=== PATIENT | female | born 1970 | race Caucasian/White ===

== ENCOUNTER 2017-09-29 18:14 | Emergency (ER) | payer BC ==
--- NOTE | 2017-09-29 18:35 | UC ---
Respiratory Complaint HPI - HPI Summary HPI Summary: 47 year old female present with complains of severe CVA tenderness after being treated for a UTI as an outpatient. - History of Current Complaint Stated Complaint: SOB, BACK PAIN Time Seen by Provider: 09/29/17 18:35 Hx Obtained From: Patient Onset/Duration: Gradual Onset Severity Initially: Moderate Severity Currently: Moderate Pain Scale Used: 0-10 Numeric - 8 - Allergies/Home Medications Allergies/Adverse Reactions: Allergies Allergy/AdvReac Type Severity Reaction Status Date / Time Flu Virus Vaccine Allergy Headache Verified 09/29/17 20:27 Trimethobenzamide Allergy Vomiting Verified 09/29/17 20:27 [From [facility]] Home Medications: Home Medications Albuterol HFA INHALER* [Ventolin HFA Inhaler*] 2 puff INH Q6H PRN 09/29/17 [ History Confirmed 09/29/17] Budesonide/Formote 160/4.5(NF) [Symbicort 160/4.5 (NF)] 2 puff INH BID 09/29/17 [History Confirmed 09/29/17] PMH/Surg Hx/FS Hx/Imm Hx Previously Healthy: Yes - Surgical History Surgical History: None - Family History Known Family History: Positive: None - Social History Alcohol Use: None Review of Systems Constitutional: Fever, Chills Skin: Negative Eyes: Negative ENT: Negative Respiratory: Negative Cardiovascular: Negative Gastrointestinal: Abdominal Pain, Nausea Genitourinary: Negative Motor: Negative Neurovascular: Negative Musculoskeletal: Negative Neurological: Negative Psychological: Negative All Other Systems Reviewed And Are Negative: Yes Physical Exam Triage Information Reviewed: Yes Vital Signs Reviewed: Yes Eye Exam: Normal ENT Exam: Normal Dental Exam: Normal Neck exam: Normal Neck: Positive: 1 Respiratory Exam: Normal Cardiovascular Exam: Normal Abdominal Exam: Normal Abdomen Description: Positive: CVA Tenderness (R), CVA Tenderness (L) Musculoskeletal Exam: Normal Neurological Exam: Normal Psychological Exam: Normal Skin Exam: Normal Respiratory Course/Dx - Differential Dx/Diagnosis Provider Diagnoses: FEVER. CHILLS. CVS TENDERNESS. NAUSEA Discharge - Discharge Plan Condition: Stable Disposition: OTHER Discharge Disposition Comment: PATIENT SUGGESTED TO GO TO THE ER Patient Education Materials: Fever in Adults (ED), Acute Nausea and Vomiting ( ED) Referrals: Peyman Veloz MD [Primary Care Provider] - Additional Instructions: patient suggested to go to the er
[2017-09-29 19:14] VITALS: BP 144/80
== END 2017-09-29 19:22 ==
LOC: UCCORT 18:14
DX: R50.9 Fever, unspecified (principal); M54.9 Dorsalgia, unspecified; R11.0 Nausea
CPT/HCPCS: 93005; 99212; G0463

== ENCOUNTER 2017-09-29 20:15 | Emergency (ER) | payer BC ==
[2017-09-29 23:41] LABS: Hematocrit 43 % (35-47); Hemoglobin 14.3 g/dl (12.0-16.0); Mean Corpuscular HGB Conc 34 g/dl (31-36); Mean Corpuscular Hemoglobin 32 pg (27-31); Mean Corpuscular Volume 93 fL (80-97); Mean Platelet Volume 8 um3 (7.4-10.4); Red Blood Count 4.55 10^6/ul (4.0-5.4); Red Cell Distribution Width 12 % (10.5-15); White Blood Count 7.4 10^3/ul (3.5-10.8)
--- NOTE | 2017-09-29 23:51 | ED ---
Respiratory - HPI Summary HPI Summary: 47F presents with SOB and midchest chest pain since 07/20/17. She states she was exposed to smoke on that date and since then has had persistent sob. She states that last night she developed abdomen pain, nausea, vomiting, diarrhea, and fever. She was seen by her primary who told her to come here. She states two week ago she was diagnosed with a uti and was on antibiotics but that has resolved. She has a history of asthma which she takes an inhaler and flovent for. She denies any cardiac history. She admits to lower back pain. She denies any injury. She denies any loss of bowel or bladder. She denies any saddle anaesthesia. - History of Current Complaint Chief Complaint: EDGeneral Stated Complaint: BACK PAIN/DIFFICULTY BREATHING Time Seen by Provider: 09/29/17 22:09 Pain Intensity: 5 - Allergy/Home Medications Allergies/Adverse Reactions: Allergies Allergy/AdvReac Type Severity Reaction Status Date / Time Flu Virus Vaccine Allergy Headache Verified 09/29/17 20:27 Trimethobenzamide Allergy Vomiting Verified 09/29/17 20:27 [From [facility]] PMH/Surg Hx/FS Hx/Imm Hx Endocrine/Hematology History: Denies: Hx Anticoagulant Therapy Respiratory History: Reports: Hx Asthma - Cancer History Hx Chemotherapy: No Hx Radiation Therapy: No - Surgical History Surgery Procedure, Year, and Place: c section Infectious Disease History: No Infectious Disease History: Denies: Traveled Outside the [place] in Last 30 Days - Social History Alcohol Use: None Substance Use Type: Reports: None Hx Tobacco Use: Yes - quit year ago Smoking Status (MU): Never Smoked Tobacco Review of Systems Positive: Fever Positive: Chest Pain Positive: Shortness Of Breath Positive: Abdominal Pain, Vomiting, Diarrhea, Nausea All Other Systems Reviewed And Are Negative: Yes Physical Exam Triage Information Reviewed: Yes Vital Signs On Initial Exam: Initial Vitals Temp Pulse Resp BP Pulse Ox 98.5 F 96 16 128/87 96 09/29/17 20:20 09/29/17 20:20 09/29/17 20:20 09/29/17 20:20 09/29/17 20:20 Vital Signs Reviewed: Yes Appearance: Positive: Well-Appearing Skin: Positive: Warm, Dry Head/Face: Positive: Normal Head/Face Inspection Eyes: Positive: Normal, EOMI, JAVIER, Conjunctiva Clear ENT: Positive: Normal ENT inspection, Pharynx normal, TMs normal Respiratory/Lung Sounds: Positive: Clear to Auscultation, Breath Sounds Present , Other - nontender on exam Cardiovascular: Positive: Normal, RRR Abdomen Description: Positive: Nontender, Soft Bowel Sounds: Positive: Present Musculoskeletal: Positive: Normal Neurological: Positive: Normal Psychiatric: Positive: Normal Diagnostics - Vital Signs Vital Signs Temp Pulse Resp BP Pulse Ox 09/29/17 20:20 98.5 F 96 16 128/87 96 - Laboratory Lab Results: Lab Results 09/29/17 Range/Units 23:20 Influenza A (Rapid) Negative (Negative) Influenza B (Rapid) Negative (Negative) Result Diagrams: 09/29/17 23:21 09/29/17 23:21 Lab Statement: Any lab studies that have been ordered have been reviewed, and results considered in the medical decision making process. - Radiology chest Xray Interpretation: No Acute Changes Radiology Interpretation Completed By: Radiologist - EKG No standard instances Cardiac Rate: NL EKG Rhythm: Sinus Rhythm ST Segment: Normal EKG Interpretation: normal sinus rhythm Re-Evaluation - Re-Evaluation First Eval Re-Evaluation Time: 01:27 Change: Improved Comment: improved with duoneb so chest pain likely asthma related Disposition - Course Course Of Treatment: 47F presents with SOB and midchest chest pain since . She states she was exposed to smoke on that date and since then has had persistent sob. She states that last night she developed abdomen pain, nausea , vomiting, diarrhea, and fever. She was seen by her primary who told her to come here. She states two week ago she was diagnosed with a uti and was on antibiotics but that has resolved. She has a history of asthma which she takes an inhaler and flovent for. She denies any cardiac history. She admits to lower back pain. She denies any injury. She denies any loss of bowel or bladder. She denies any saddle anaesthesia. She is able to speak rapidly in long sentences though on exam although currently experiencing SOB and stats are 97. lungs CTA. abdomen mild diffuse tenderness. tender on side of back. no midline tenderness. no CVA tenderness. chest xray read by me as normal. gave duoneb and states feels better. on exam tenderness thoracic back on side of back. discussed with patient states that feels like has uti that didnt resolve. states got septic last time from pyelo and states feels same way. urine inconculsive for uti so will treat with such with cipro. lactic elevated so gave fluids. will treat prednisone for asthma. patient understand and agrees with plan. - Differential Dx - Cardiopulmonary Differential Diagnoses - Cardiopulmonary: Bronchitis, Lower Resp Infection, Pulmonary Embolism - Diagnoses Provider Diagnoses: Shortness of breath, Chest pain, Back pain, Nausea vomiting and diarrhea, UTI ( urinary tract infection), Asthma Discharge - Discharge Plan Condition: Good Disposition: HOME Prescriptions: Ciprofloxacin TAB* [Cipro 500 MG TAB*] 500 mg PO BID #14 tab predniSONE TAB* [Deltasone TAB*] 40 mg PO DAILY #4 tab Patient Education Materials: Asthma (ED), Urinary Tract Infection in Women (ED) Referrals: Peyman Veloz MD [Primary Care Provider] - Additional Instructions: Chest pain likely asthma related: will try another course of steroid for 5 days take cipro twice a day for 7 days Can take Zofran every 6 hours as needed for nausea Drink small amounts of fluid as tolerated When able to eat follow BRAT diet: Bananas, rice, applesauce, toast Take ibuprofen or Tylenol for pain as needed every 6 hours Follow up with primary within 5 days Return to ED if develop fever that does not respond to Tylenol or ibuprofen, severe abdominal pain, or any new or worsening symptoms
[2017-09-29 23:52] LABS: Urine Bacteria Absent (Absent); Urine Bilirubin Negative (Negative); Urine Glucose Negative (Negative); Urine Nitrite Negative (Negative)
[2017-09-29 23:59] LABS: Albumin 4.1 g/dL (3.2-5.2); Calcium 9.4 mg/dL (8.6-10.3); EGFR African American 85.6 (>60); EGFR Non-African American 66.5 (>60); Globulin 2.7 g/dL (2-4); Potassium 3.7 mmol/L (3.5-5.0); Total Bilirubin 0.8 mg/dL (0.2-1.0); Total Protein 6.8 g/dL (6.4-8.9)
[2017-09-30] LABS: Troponin I 0.01 ng/mL (<0.04)
[2017-09-30] MEDS ORDERED: NS 0.9% 1000 ML* 1,000 ML IV ONE (00:04)
[2017-09-30] MEDS ORDERED: Albuterol/Ipratropium NEB.SOL* Albuterol 2.5 MG/Ipratropium 0.5 MG 3 ML INH ONE (00:27)
[2017-09-30] MEDS ORDERED: Ciprofloxacin TAB* 500 MG PO ONE (00:28)
[2017-09-30] MEDS ORDERED: Acetaminophen TAB* 325 MG PO ONE (00:28)
[2017-09-30 02:36] VITALS: BP 102/50
--- NOTE | 2017-09-30 06:33 | RAD ---
INDICATION: Chemical inhalation COMPARISON: None TECHNIQUE: PA and lateral views of the chest were obtained. FINDINGS: The heart and mediastinum are normal in size and contour. The lungs are grossly clear. There is no evidence of large pleural effusion. Visualized bones are normal for the patient's age. There is no radiographic evidence of free air beneath the diaphragm IMPRESSION: No radiographic evidence of acute cardiopulmonary disease.
== END 2017-09-30 02:36 | disposition home or self-care (01) ==
LOC: ED 20:15
DX: R06.02 Shortness of breath (principal); R07.89 Other chest pain; M54.5 Low back pain; R11.2 Nausea with vomiting, unspecified; R19.7 Diarrhea, unspecified; N39.0 Urinary tract infection, site not specified; J45.909 Unspecified asthma, uncomplicated; Z88.7 Allergy status to serum and vaccine; Z88.8 Allergy status to other drugs, medicaments and biological substances; Z87.891 Personal history of nicotine dependence
CPT/HCPCS: 36415; 71020; 80053; 81003; 81015; 83605; 83690; 83880; 84484; 85025; 85379; 86141; 87086; 87502; 93005; 94640; 96360; 99283; A9270-GY

== ENCOUNTER 2018-05-17 16:15 | Emergency (ER) | payer BC ==
--- OUTSIDE RECORDS SUMMARY | 2018-05-17 16:23 | XMS REPORT ---
:1970 External Reference #:[id number] Author Organization [facility] Address [address] [place] [address] Phone [phone] Care Team Providers Name Role Phone Peyman Veloz MD Care Team Information Formula Technician Unavailable Peyman Veloz MD Primary Care Physician Unavailable Payers Type Date Identification Numbers Payment Provider Subscriber Commercial Effective: Policy Number: [place] [employer] Aysha Wagner 2015 [id number] PayID: [id number] [place] [id number] Problems Date Description Provider Status Onset: 05/03/2018 Uncomplicated moderate persistent Peyman Veloz M.D. Active asthma Onset: 07/22/2016 Other sleep disorders Peyman Veloz M.D. Active Family History Date Family Member(s) Problem(s) Comments Mother Vitamin B12 deficiency (non anemic) First Sister Vitamin B12 Deficiency (Non Anemic) Social History Type Date Description Comments Smoking Patient is a former smoker Allergies, Adverse Reactions, Alerts Date Description Reaction Status Severity Comments 07/22/2016 Flu Virus Vaccine active 11/05/2017 Tigan increased vomiting active 11/05/2017 Grass active 11/05/2017 Trees active Medications Medication Date Status Form Strength Qnty SIG Indications Ordering Provider Prednisone 05/15/ Active Tablets 50mg 5tabs take one J06.9 Lexi CSushil 2018 by mouth Nate, daily for SOAKER HIDES 5 days CBD 05/03/ Active oil 10mg Peyman Guadarrama 2017 hemp based Jacqueline Veloz Breo Ellipta 03/25/ Active Aerosol 200-25mcg/ 28uni 1 puff Peyamn Da Silva Inh ts daily Jacqueline Veloz Omeprazole 01/18/ Active Capsules 20mg 30cap 1 by mouth Peyman Guadarrama [address] gutierrez every day Magdiel, in the M.D. evening Spiriva 10/08/ Active Capsules 18mcg 30cap Inhale The Peyman Guadarrama Handihaler 2017 s Contents Magdiel, Of 1 M.D. Capsule By Mouth Daily Ventolin HFA 09/16/ Active Aerosol 108(90Base 18uni inhale two Peyman Guadarrama 2015 ) mcg/Act ts puffs by Daryazmin, mouth M.D. every 6 hours as needed for for shortness of breath Advil / Active Tablets 200mg prn Unknown 0000 Multivitamins / Active Capsules 1 by mouth Unknown 0000 every day Vitamin C / Active Tablets 500mg 1 by mouth Unknown 0000 every day Fish Oil/Laporte / Active Capsules 1000mg 1 po tid Unknown 3/Dha/Epa 0000 Vitamin D3 / Active Capsules 2000Unit 1 po qd Unknown 0000 Glucosamine / Active Capsules 1-2 po qd Unknown Chondroitin 0000 Magnesium / Active Tablets 1 by mouth Unknown 0000 every day Iron / Active Tablets Unknown 0000 Vitamin K / Active Tablets 100mcg qd Unknown (Phytonadione) 0000 Tonic Syrup / Active qd Unknown 0000 Melatonin / Active Capsules 1mg Unknown 0000 Azithromycin 11/05/ Hx Tablets 250mg 6tabs 2 by mouth J42 Peyman Guadarrama 2017 - today then Daryazmin, by mouth M.D. 2017 every day x 4 days Breo Ellipta 10/08/ Hx Aerosol 100-25mcg/ 28uni inhale one Peyman Guadarrama 2016 - Inh ts puff by Magdiel, 03/25/ mouth M.D. 2017 every day Nitrofurantoin 09/21/ Hx Capsules 100mg 6caps 1 by mouth N39.0 Peyman Guadarrama Monohyd Macro 2017 - two times Daryazmin, 09/24/ a day M.D. 2017 Flovent HFA 09/29/ Hx Aerosol 44mcg/Act 10.60 2 puff J45.998 Yolanda 2016 - 0gm twice a Jose C, 09/20/ day Afnp-C 2017 Valerian / Hx Capsules prn sleep Unknown 0000 - 2015 Stevia Tonic / Hx 24 oz per Unknown Water 0000 - day 2016 Symbicort / Hx Aerosol 160-4.5mcg 2 puff Unknown 0000 - /Act twice a 2017 Prednisone / Hx Tablets 50mg 1 by mouth Unknown 0000 - every day 09/23/ for 3 days 2016 Vital Signs Date Vital Result Comment 05/15/2018 BP Systolic 138 mmHg BP Diastolic 80 mmHg Heart Rate 88 /min Body Temperature 97.9 F Height 67.5 inches 5'7.50" Weight 263.00 lb BMI (Body Mass Index) 40.6 kg/m2 05/03/2018 BP Systolic 138 mmHg BP Diastolic 82 mmHg Heart Rate 84 /min Body Temperature 97.5 F Respiratory Rate 16 /min Height 67.5 inches 5'7.50" Weight 261.00 lb BMI (Body Mass Index) 40.3 kg/m2 01/18/2018 BP Systolic 140 mmHg BP Diastolic 80 mmHg Heart Rate 84 /min Body Temperature 99.4 F Respiratory Rate 16 /min Height 67.5 inches 5'7.50" Weight 265.00 lb BMI (Body Mass Index) 40.9 kg/m2 11/05/2017 BP Systolic 144 mmHg BP Diastolic 84 mmHg Heart Rate 94 /min Body Temperature 97.9 F Respiratory Rate 18 /min O2 % BldC Oximetry 99 % Height 67.5 inches 5'7.50" Weight 276.00 lb BMI (Body Mass Index) 42.6 kg/m2 09/30/2017 BP Systolic 142 mmHg BP Diastolic 80 mmHg Heart Rate 72 /min Body Temperature 98.3 F Respiratory Rate 16 /min Height 67.5 inches 5'7.50" Weight 271.00 lb BMI (Body Mass Index) 41.8 kg/m2 09/21/2017 BP Systolic 130 mmHg BP Diastolic 80 mmHg Heart Rate 76 /min Body Temperature 98.1 F Respiratory Rate 16 /min Height 67.5 inches 5'7.50" Weight 271.00 lb BMI (Body Mass Index) 41.8 kg/m2 09/29/2016 BP Systolic 120 mmHg BP Diastolic 80 mmHg Heart Rate 68 /min Body Temperature 98.1 F Respiratory Rate 18 /min Height 67.5 inches 5'7.50" Weight 261.00 lb BMI (Body Mass Index) 40.3 kg/m2 09/16/2016 BP Systolic 138 mmHg BP Diastolic 76 mmHg Heart Rate 80 /min Body Temperature 98.0 F Respiratory Rate 16 /min Height 67.5 inches 5'7.50" Weight 260.00 lb BMI (Body Mass Index) 40.1 kg/m2 07/22/2016 BP Systolic 140 mmHg BP Diastolic 74 mmHg Heart Rate 72 /min Body Temperature 98.1 F Respiratory Rate 16 /min Height 67.5 inches 5'7.50" Weight 263.00 lb BMI (Body Mass Index) 40.6 kg/m2 04/09/2016 BP Systolic 150 mmHg BP Diastolic 90 mmHg Heart Rate 80 /min Body Temperature 99.2 F Respiratory Rate 16 /min Height 67.5 inches 5'7.50" Weight 272.00 lb BMI (Body Mass Index) 42.0 kg/m2 12/10/2015 BP Systolic 144 mmHg BP Diastolic 90 mmHg Heart Rate 88 /min Body Temperature 98.8 F Respiratory Rate 16 /min Height 67.5 inches 5'7.50" Weight 266.00 lb BMI (Body Mass Index) 41.0 kg/m2 11/12/2015 BP Systolic 136 mmHg BP Diastolic 80 mmHg Heart Rate 88 /min Body Temperature 98.7 F Respiratory Rate 16 /min Height 67.5 inches 5'7.50" Weight 270.00 lb BMI (Body Mass Index) 41.7 kg/m2 Results Test Date Test Result H/L Range Note Laboratory test finding 05/03/2018 Ferritin 104 ng/mL 15-200 Laboratory test finding 11/05/2017 IgE, Serum 48 [IU]/mL <100 Allergy Region Respirat 11/05/2017 Cat Dander IgE Qn <0.35 k[IU]/L <0.35 Cat Dander IgE Rast Ql 0 Dog Dander IgE Qn <0.35 k[IU]/L <0.35 Dog Dander IgE Rast Ql 0 Mouse Urine Prot IgE Qn <0.35 k[IU]/L <0.35 Mouse Epith IgE Rast Ql 0 D farinae IgE Qn <0.35 k[IU]/L <0.35 D farinae IgE Rast Ql 0 D pteronyss IgE Qn <0.35 k[IU]/L <0.35 D pteronyss IgE Rast Ql 0 House Dust hs IgE Qn <0.35 k[IU]/L <0.35 House Dust hs IgE Rast Ql 0 [place] grass IgE Qn <0.35 k[IU]/L <0.35 [place] grass IgE Rast Ql 0 Betula verrucosa Ab.IgE <0.35 k[IU]/L <0.35 Betula verrucosa Ab.IgE.Rast class 0 Common Ragweed IgE Qn <0.35 k[IU]/L <0.35 Common Ragweed IgE Rast Ql 0 Ford IgEQn <0.35 k[IU]/L <0.35 Ford IgERAST Ql 0 White Elm IgE Qn <0.35 k[IU]/L <0.35 White [place]m IgE Rast Ql 0 Boxelder IgE Qn <0.35 k[IU]/L <0.35 Boxelder IgE Rast Ql 0 Herring Plane IgE Ab <0.35 k[IU]/L <0.35 Herring Plane IgE Ab Rast class 0 Mt Juniper IgE Qn <0.35 k[IU]/L <0.35 Mt Juniper IgE Rast Ql 0 k[IU]/L Mugwort IgE Qn <0.35 k[IU]/L <0.35 Mugwort IgE Rast Ql 0 Morus albaAb.IgE <0.35 k[IU]/L <0.35 Morus alba.IgE.Rast class 0 [place] IgE Qn <0.35 k[IU]/L <0.35 [place] IgE Rast Ql 0 Pigweed commonAb.IgE <0.35 k[IU]/L <0.35 Pigweed commonAb.IgE.Rast class 0 Sheep [place] IgE Qn <0.35 k[IU]/L <0.35 Sheep [place] Rast Ql 0 John IgE Qn <0.35 kU/L <0.35 John IgE Rast Ql 0 [place] IgE Qn <0.35 k[IU]/L <0.35 [place] Poln IgE Rast Ql 0 [place] Ernie IgE Qn <0.35 k[IU]/L <0.35 [place] Ernie IgE Rast Ql 0 k[IU]/L A alternata IgE Qn <0.35 k[IU]/L <0.35 A alternata IgE Rast Ql 0 A fumigatus IgE Qn <0.35 k[IU]/L <0.35 A.fumaigatus IgE Rast Ql 0 C herbarum IgE Qn <0.35 k[IU]/L <0.35 C herbarum IgE Rast Ql 0 P notatum IgE Qn <0.35 k[IU]/mL <0.35 P notatum IgE Rast Ql 0 Cabrera IgE Qn <0.35 k[IU]/L <0.35 Cabrera IgE Rast Ql 0 Total IgE Qn Rast 45.5 IU/mL <100 Allergy Interpretation (NOTE) 1 Laboratory test finding 09/30/2017 Troponin I 0.00 ng/mL <0.04 Laboratory test finding 09/29/2017 Lipase 14 U/L 11.0-82.0 CRP High Sensitivity 81.59 mg/L 2 Troponin I 0.01 ng/mL <0.04 Lactic Acid 2.3 mmol/L High 0.5-2.0 3 Comp Metabolic Panel 09/29/2017 Sodium 137 mmol/L 133-145 Potassium 3.7 mmol/L 3.5-5.0 Chloride 101 mmol/L 101-111 Co2 Carbon Dioxide 29 mmol/L 22-32 Anion Gap 7 mmol/L 2-11 Glucose 126 mg/dL High 70-100 Blood Urea Nitrogen 9 mg/dL 6-24 Creatinine 0.90 mg/dL 0.51-0.95 BUN/Creatinine Ratio 10.0 8-20 Calcium 9.4 mg/dL 8.6-10.3 Total Protein 6.8 g/dL 6.4-8.9 Albumin 4.1 g/dL 3.2-5.2 Globulin 2.7 g/dL 2-4 Albumin/Globulin Ratio 1.5 1-3 Total Bilirubin 0.80 mg/dL 0.2-1.0 Alkaline Phosphatase 47 U/L 34-104 Alt 32 U/L 7-52 Ast 21 U/L 13-39 Egfr Non- 66.5 >60 Egfr 85.6 >60 4 Laboratory test finding 09/29/2017 D Dimer Quantitative < 200 ng/mL Less Than 230 5 Urinalysis Profile 09/29/2017 Urine Color Yellow Urine Appearance Clear Urine Specific Clayton 1.013 1.010-1.030 Urine pH 5.0 5-9 Urine Urobilinogen Negative Negative Urine Ketones Negative Negative Urine Protein Negative Negative Urine Leukocytes 1+ Negative Urine Blood Negative Negative * * Negative 6 Urine Nitrite Negative Negative Urine Bilirubin Negative Negative Urine Glucose Negative Negative Urine White Blood Cell Trace(0-5/hpf) Absent Urine Red Blood Cell 1+(3-5/hpf) Absent Urine Bacteria Absent Absent Urine Squamous Epithelial Cell Present Absent Laboratory test 09/29/2017 Urine Culture And SEE RESULT BELOW 7 finding Sensitivities CBC Auto Diff 09/29/2017 White Blood Count 7.4 10^3/uL 3.5-10.8 Red Blood Count 4.55 10^6/uL 4.0-5.4 Hemoglobin 14.3 g/dL 12.0-16.0 Hematocrit 43 % 35-47 Mean Corpuscular Volume 93 fL 80-97 Mean Corpuscular Hemoglobin 32 pg High 27-31 Mean Corpuscular HGB Conc 34 g/dL 31-36 Red Cell Distribution Width 12 % 10.5-15 Platelet Count 202 10^3/uL 150-450 Mean Platelet Volume 8 um3 7.4-10.4 Abs Neutrophils 5.3 10^3/uL 1.5-7.7 Abs Lymphocytes 1.4 10^3/uL 1.0-4.8 Abs Monocytes 0.6 10^3/uL 0-0.8 Abs Eosinophils 0 10^3/uL 0-0.6 Abs Basophils 0 10^3/uL 0-0.2 Abs Nucleated RBC 0 10^3/uL Granulocyte % 71.8 % 38-83 Lymphocyte % 19.0 % Low 25-47 Monocyte % 8.6 % 1-9 Eosinophil % 0.3 % 0-6 Basophil % 0.3 % 0-2 Nucleated Red Blood Cells % 0.1 Laboratory test finding 09/29/2017 B-Type Natriuretic Peptide BNP 27 pg/mL 8 Urine (Fma) 09/21/2017 SP Grav negative Urine, (Fma/CMC/CTX) 1.010 High interpret w/caut Ua - Micro (Fma) 09/21/2017 Appearance clear Color yellow Glucose, Urine (Fma/CMC/CTX) - Bilirubin - Ketones - SP Grav 1.010 Blood trace (lysed) PH 7.0 Protein - Urobil 0.2 Nitrite - Leukocytes (Fma/CMC/Centrex) trace Hyaline - /Lpf Granular - /Lpf WBC (Fma,Centrex) 3-5 RBC 0-1 Mucus - /Lpf Epith occ /Lpf Bacteria trace /Hpf Amorphous - /Lpf Crystals, Fluid (Fma/CMC/CTX) - Laboratory test 09/21/2017 Urine Culture And SEE RESULT BELOW 9 finding Sensitivities Laboratory test 12/10/2015 PTH, Intact 37 pg/mL 15-65 10 finding Toxassure(R) Select 12/10/2015 Report Summary FINAL 10, 11 13 (MW) PDF . 10 Iron And Tibc 12/10/2015 Iron Bind.Cap.(Tibc) 299 g/dL 250-450 10 Uibc 189 g/dL 131-425 10 Iron, Serum 110 g/dL 27-159 10 Iron Saturation 37 % 15-55 10 Laboratory test finding 12/10/2015 PDF [id number] SEE IMAGE 10 Laboratory test finding 12/10/2015 Vitamin D25 24 Low 30-100 Complete Blood Count 12/10/2015 WBC 7.6 x10^3/UL 3.6-9.6 RBC 4.50 x10^6/UL 3.90-5.70 HGB 14.7 g/dL 12.1-17.2 HCT 42 % 36-50 MCV 94.0 fL 82.2-97.4 MCH 32.7 pg 27.6-33.3 MCHC 34.7 g/dL 33.0-35.5 RDW 13.4 % 11.6-13.7 PLT 306 x10^3/UL 150-400 MPV 7.3 fL Low 7.4-10.4 Gran # 4.5 x10^3/UL 1.5-7.2 Lymph# 2.7 x10^3/UL 0.7-4.9 Webster# 0.4 x10^3/UL 0.1-0.9 Gran % 58.4 % 42.2-75.2 Lymph % 36.1 % 20.5-51.1 Webster% 5.5 % 1.7-9.3 Laboratory test finding 11/12/2015 Cytology SEE RESULT BELOW 12 Human Papilloma Virus Rna Negative Negative 13 Lyme Western Blot 11/12/2015 Lyme Disease IgG Ab WB Negative Negative Lyme Disease IgG Bands Present No bands detecte <SEE NOTE> kDa 14 Lyme Disease IgM Ab WB Negative Negative Lyme Disease IgM Bands Present p41, kDa Lyme Disease Interpretation See Comment 15 Laboratory test finding 11/12/2015 Methylmalonic Acid Mma 0.26 nmol/mL <= 0.40 16 Homocysteine 9 mcmol/L 17 Comprehensive Metabolic Prof 11/12/2015 Sodium 140 mEq/L 134-149 Potassium 4.1 mEq/L 3.6-5.5 Chloride 100 mEq/L 94-112 Carbon Dioxide 25 mEq/L 21-32 Glucose 117 mg/dL High 70-105 18 BUN 12 mg/dL 6-26 Creatinine 0.7 mg/dL 0.6-1.4 BUN/Creat Ratio 17.1 CALC 8.0-36.0 Calcium 9.5 mg/dL 8.6-10.2 Total Protein 7.4 g/dL 6.4-8.3 Albumin 4.4 g/dL 3.8-5.5 Globulin 3.0 g/dL 2.0-4.8 A/G Ratio 1.5 CALC 0.6-2.3 Alk. Phosphatase 54 U/L 30-110 Alt (SGPT) 26 U/L 7-35 Ast (Sgot) 16 U/L 5-34 Total Bilirubin 0.4 mg/dL 0.2-1.3 GFR Non- >60 ml/min/1.73m^ >=60 GFR >60 ml/min/1.73m^ >=60 Laboratory test finding 11/12/2015 TSH 2.92 mIU/L 0.50-6.00 Lipid Profile 11/12/2015 Cholesterol 215 mg/dL High 120-200 Triglycerides 291 mg/dL High 30-200 HDL Cholesterol 43 mg/dL 30-85 LDL (Calculated) 114 CALC 0-129 VLDL Cholesterol 58 mg/dL High 0-50 HDL Risk Factor 5.0 CALC High 0.0-4.4 Laboratory test finding 11/12/2015 Vitamin B-12 569 pg/mL 230-1050 Folate Level 10.75 ng/mL 3.00-16.00 LDL, Direct 133 mg/dL High 0-130 1 Specific Level of Allergen IgE Class ku/L Specific IgE Ab 0 <0.35 Absent/Undetectable 1 0.35-0.70 Low Level 2 0.71-3.50 Moderate Level 3 3.51-17.5 High Level 4 17.6-50.9 Very High Level 5 51.0-100 Very High Level 6 >100.0 Very High Level 2 Low risk: <1.00 Average risk: 1.00-3.00 High risk: >3.00 3 Critical Result LACT:2.3 Called to [id number] at: 00:02:41 by:[id number] Read back by:[id number] [place] Severe Sepsis and Septic Shock Management Bundle Measure requires all lactic acids initially measuring >2.0 mmol/L be repeated. 4 Because ethnic data is not always readily available, this report includes an eGFR for both -Americans and non- Americans. The National Kidney Disease Education Program (NKDEP) does not endorse the use of the MDRD equation for patients that are not between the ages of 18 and 70, are , have extremes of body size, muscle mass, or nutritional status, or are non- or non-. According to the National Kidney Foundation, irrespective of diagnosis, the stage of the disease is based on the level of kidney function: Stage Description GFR(mL/min/1.73 m(2)) 1 Kidney damage with normal or decreased GFR 90 2 Kidney damage with mild decrease in GFR 60-89 3 Moderate decrease in GFR 30-59 4 Severe decrease in GFR 15-29 5 Kidney failure <15 (or dialysis) 5 Please note: The following may produce a false positive D Dimer test: - Rheumatoid factor greater than 60 IU/ml - Plasma hemoglobin greater than 0.05 gm/dl - Bilirubin greater than 50 mg/dl - Lipids greater than 1000 mg/dl - FDP greater than 20 ug/ml 6 *Ascorbic acid is present which may interfere with detection of blood. 7 SEE RESULT BELOW Name: AYSHA WAGNER : [address]: Regan Swanson MD Acct: [id number] Unit: [id number] AGE: 47 Location: ED Re09/29/17 SEX: F Status: DEP ER SPEC: [id number] SAMMY: 09/29/[address]: Emilee TAYLOR REQ: [id number] RECD: 09/29/17 STATUS: EBONY MURRIETA DR: Peyman Swanson MD _ SOURCE: URINE SPDESC: ORDERED: Urine Culture Procedure Result Reported Site Urine Culture Final 10/01/17- 0954 ML No growth of clinically significant organisms * ML - MAIN LAB ([facility]) . END OF REPORT * ML=Testing performed at Main Lab DEPARTMENT OF PATHOLOGY, [address] [place] [address] Gurinder Slaughter M.D. Director [facility] # [id number] 8 >100 to <200 pg/mL: likely compensated congestive heart failure (CHF) 200 to 400 pg/mL: likely moderate CHF >400 pg/mL: likely moderate to severe CHF 9 SEE RESULT BELOW Name: AYSHA WAGNER : [address]: Peyman Veloz MD Acct: [id number] Unit: [id number] AGE: 47 Location: [facility] Re09/21/17 SEX: F Status: REG REF SPEC: [id number] SAMMY: 09/21/[address]: Peyman Veloz MD REQ: [id number] RECD: 09/21/17 STATUS: COMP _ SOURCE: URINE SPDESC: ORDERED: Urine Culture COMMENTS: 1 urine culture [id number] Procedure Result Reported Site Urine Culture Final 09/22/17- 1620 ML Few Enterobacteriacae; possible contamination. * ML - MAIN LAB ([facility]) . END OF REPORT * ML=Testing performed at Main Lab DEPARTMENT OF PATHOLOGY, [address] [place] [address] Gurinder Slaughter M.D. Director [facility] # [id number] 10 REFRIGERATED 11 TOXASSURE SELECT 13 (MW) Test Result Flag Units NO DRUGS DETECTED. Test Result Flag Units Ref Range Creatinine 56 mg/dL >=20 Declared Medications: Medication list was not provided. For clinical consultation, please call . 12 SEE RESULT BELOW Name: AYSHA WAGNER : [address]: Peyman Veloz MD Acct: [id number] Unit: [id number] AGE: 45 Location: [facility] Re11/12/15 SEX: F Status: REG REF SPEC: [id number] SAMMY: 11/12/15-[address] [facility] [address]: Peyman Veloz MD REQ: [id number] RECD: 11/12/15 STATUS: SOUT _ ORDERED: IMAGE ANALYSIS, HPV/Thin Prep FINAL DIAGNOSIS Negative for Intraepithelial lesion or Malignancy A. Ectocervical/Endocervical Specimen Adequacy: Satisfactory of evaluation Transformation zone component identified Patient Information: HPV: High risk HPV RNA testing regardless of pap results. Actual Specimen Date: 11/12/15 LMP If Unknown: unknown Spec Date if unknown: many yrs ?: N Post Menopausal?: N Hysterectomy?: N Previous Abnormal Pap Smears?:N Date Time Test Result Flag (u) Normal Range 11/12/15 1054 HPV RNA Negative Negative The high-risk HPV types detected by the assay include: 16, 18, 31, 33, 35, 39, 45, 51, 52, 56, 58, 59, 66, and 68. Signed (signature on file) CANDE Scott (ASCP) 11/13 6820 This Pap test was evaluated with the assistance of the Long PlayPrep Test Imaging System. Due to cytologic findings at the wharfmaster microscope, comprehensive manual rescreening by a Court Of Appeals Judge may be required. The Pap Smear is a screening test designed to aid in the detection of premalignant and malignant conditions of the uterine cervix. It is not a diagnostic procedure and should not be used as the sole means of detecting cervical cancer. Both false- positive and false- negative reports do occur. Depending on your risk status, a Pap smear should be obtained and evaluated every 1-3 years. END OF REPORT * ML=Testing performed at Main Lab DEPARTMENT OF PATHOLOGY, [address] [place] [address] Gurinder Slaughter M.D. Director [facility] # [id number] 13 The high-risk HPV types detected by the assay include: 16, 18, 31, 33, 35, 39, 45, 51, 52, 56, 58, 59, 66, and 68. 14 No bands detected 15 Specific serologic response to B. burgdorferi infection is not detected, but cannot rule out early infection during which low or undetectable antibody levels to B. burgdorferi may be present. If clinically indicated, a new serum specimen should be submitted in 7-14 days. ADDITIONAL INFORMATION CDC criteria require >=5 bands for IgG or >=2 bands for IgM for the Immunoblot to be considered positive. Bands (e.g.,p41) may be detected in patients without Lyme disease, and patterns not meeting the CDC criteria should be interpreted with caution. Immunoblot should be ordered only on specimens that are positive or equivocal by a FDA-licensed Lyme disease antibody screening test (e.g., EIA). Test Performed by: [address] [address] Pipe Jeeper: Randy Price II, M.D., Ph.D. 16 Test Performed by: [address] [address] Pipe Jeeper: Randy Price II, M.D., Ph.D. 17 REFERENCE VALUE <=13 (Fasting) Test Performed by: [address] [address] Pipe Jeeper: Randy Price II, M.D., Ph.D. 18 NON-FASTING Procedures Date CPT Code Description Status 01/18/2018 35108 Electrocardiogram Complete Completed 01/15/2018 61071 Electrocardiogram Complete Completed 11/05/2017 85104 Pulse Oximetry Completed 11/14/2015 Mammogram Completed 11/12/2015 80599 Electrocardiogram Complete Completed Encounters Type Date Location Provider CPT E/M Dx Office Visit 05/03/2018 2:00p [facility] Peyman Veloz M.D. 71275 G47.8 J45.40 Office Visit 01/18/2018 9:50a [facility] Peyman Veloz M.D. 00939 R00.2 Office Visit 01/15/2018 2:00p [facility] Peyman Veloz M.D. 41004 R00.2 Office Visit 11/05/2017 7:40p [facility] Office Peyman Veloz M.D. 67759 J42 Office Visit 09/30/2017 1:10p [facility] Peyman Veloz M.D. 62078 G47.8 Office Visit 09/21/2017 3:30p [facility] Peyman Veloz M.D. 53601 N39.0 Office Visit 09/29/2016 4:30p [facility] Yolanda Woodall, 89536 J45.998 Afnp-C Office Visit 09/16/2016 8:00a [facility] Peyman Veloz M.D. 41761 G47.8 Office Visit 07/22/2016 8:20a [facility] Peyman Veloz M.D. 52916 G47.8 Office Visit 04/09/2016 1:20p [facility] Peyman Veloz M.D. 80765 G47.8 Office Visit 12/10/2015 3:00p [facility] Peyman Veloz M.D. 46268 G31.84 Office Visit 11/12/2015 9:00a [facility] Peyman Veloz M.D. 34641 Z00.00 Z83.49 Z20.818 Z12.39 Z12.4 R06.00 I39 E78.1 Plan of Care 05/15/2018 - Lexi Sullivan, NPJ06.9 Acute upper respiratory infection, unspecifiedNew Medication:Prednisone 50 mgNew Xrays:Chest 2 ViewsComments:Call or return if you develop new fever, trouble breathing, sudden worsening, or pain in the ears, face, or chest . While the symptoms of upper respiratory infections are uncomfortable and can take a long time to go away, they rarely present significant danger. Use a humidifier at night and drink plenty of fluids during the day. Ibuprofen or tylenol are good for headaches and sore throats. Other cough and cold remedies, such as guaifenesin or phenylephrine, will not help you get better any faster. They can temporarily help with symptoms , but you should only continue to take them if you actually experience some relief within a couple hours of taking a dose. It is normal to cough for 2-3 weeks. You should be re-evaluated at the office if your cough persists longer or if you have a cough with fever,wheezing, or worsening pain.Get the chest x- ray done if you have temperature over 99.5 by tomorrow.Goals:Discussed symptoms at length -- patient does not want cough treatment now, mostly wants help breathing. Will tolerate some fever for total of 48 hours, but any fever beyond tonight should trigger chestx-ray and f/u visit. She will go to [facility] if worse over weekend.J45.41 Moderate persistent asthma with (acute) exacerbation
[2018-05-17 16:28] VITALS: BP 136/79
--- NOTE | 2018-05-17 16:47 | UC ---
Respiratory Complaint HPI - HPI Summary HPI Summary: 47 yo female presents with cough for the last 1 week. She tells me that she was seen by her PCP 3 days ago and dx'd with an asthma exacerbation and prescribed prednisone. This greatly upset the pt as she believed she had bronchitis and needed an antibiotic. Pt is here now with complaints of increased wheezing and pain in her ribs when she coughs, although she does admit to feeling better and easier work of breathing with the steroids. She is using her at home ventolin inhaler. Denies fever, chills, SOB, chest pain. - History of Current Complaint Chief Complaint: UCChestPain Stated Complaint: ASTHMA Time Seen by Provider: 05/17/18 16:32 Hx Obtained From: Patient Hx Last Menstrual Period: 09/03/17 Onset/Duration: Gradual Onset Severity Initially: Mild Severity Currently: Mild Pain Intensity: 2 Pain Scale Used: 0-10 Numeric Character: Cough: Nonproductive - Allergies/Home Medications Allergies/Adverse Reactions: Allergies Allergy/AdvReac Type Severity Reaction Status Date / Time Influenza Virus Vaccines Allergy Headache Verified 05/17/18 16:29 trimethobenzamide Allergy Vomiting Verified 05/17/18 16:29 [From [facility]] Home Medications: Home Medications Fluticasone/Vilanterol MDI(NF) [Breo Ellipta MDI 200/25(NF)] 1 dose INH DAILY [History Confirmed 05/17/18] Spiriva Inhaler DEVICE* [Tiotropium Inhaler DEVICE*] 1 dose INH DAILY 05/17/18 [ History Confirmed 05/17/18] predniSONE TAB* [Deltasone 20 MG TAB*] 50 mg PO DAILY 05/17/18 [History Confirmed 05/17/18] PMH/Surg Hx/FS Hx/Imm Hx - Additional Past Medical History Additional PMH: Asthma Other History Of: Negative For: Anticoagulant Therapy - Surgical History Surgical History: None Surgery Procedure, Year, and Place: c section - Family History Known Family History: Positive: Respiratory Disease - Social History Occupation: Employed Full-time Lives: With Family Alcohol Use: None Substance Use Type: None Smoking Status (MU): Never Smoked Tobacco Review of Systems Constitutional: Negative Skin: Negative Eyes: Negative ENT: Negative Respiratory: Cough Cardiovascular: Negative Gastrointestinal: Negative Genitourinary: Negative Neurological: Negative Psychological: Negative All Other Systems Reviewed And Are Negative: Yes Physical Exam - Summary Physical Exam Summary: GENERAL: NAD. Obese. Anxious and hyperverbal SKIN: No rashes, sores, lesions, or open wounds. HEENT: Head: AT/NC Eyes: Conjunctiva clear without inflammation or discharge. Ears: Hearing grossly normal. TMs intact, no bulging, erythema, or edema. Nose: Nasal mucosa pink and moist. NTTP maxillary and frontal sinus. Throat: Posterior oropharynx without exudates, erythema, or tonsillar enlargement. Uvula midline. NECK: Supple. Nontender. No lymphadenopathy. CHEST: Scant wheezing throughout. No r/r. No accessory muscle use. Breathing comfortably and in no distress. CV: RRR. Without m/r/g. Pulses intact. Brisk cap refill. NEURO: Alert. CN II-XII grossly intact. PSYCH: Age appropriate behavior. Triage Information Reviewed: Yes Vital Signs: Initial Vital Signs Temp 97.5 F 05/17/18 16:24 Pulse 91 05/17/18 16:24 Resp 18 05/17/18 16:24 BP 136/79 05/17/18 16:24 Pulse Ox 97 05/17/18 16:24 Vital Signs Reviewed: Yes Diagnostic Evaluation - Laboratory O2 Sat by Pulse Oximetry: 97 Respiratory Course/Dx - Course Course Of Treatment: CXR: IMPRESSION: No radiographic evidence of acute cardiopulmonary disease. Pt declined nebulizer treatment today. She is strongly requesting an antibiotic - she has had zpak in the past with good results. - Differential Dx/Diagnosis Provider Diagnoses: Bronchitis Discharge - Sign-Out/Discharge Documenting (check all that apply): Patient Departure - Discharge Plan Condition: Stable Disposition: HOME Prescriptions: Azithromycin TAB* [Zithromax TAB (Z-DALE) 250 mg #6 tabs] 2 tab PO .TODAY, THEN 1 DAILY #1 dale Patient Education Materials: Acute Bronchitis (ED) Referrals: Peyman Veloz MD [Primary Care Provider] - Additional Instructions: If you develop a fever, shortness of breath, chest pain, new or worsening symptoms - please call your PCP or go to the ED. - Billing Disposition and Condition Condition: STABLE Disposition: Home
--- NOTE | 2018-05-17 16:56 | RAD ---
INDICATION: Cough COMPARISON: Chest x-ray dated September 29, 2017 TECHNIQUE: PA and lateral views of the chest were obtained. FINDINGS: The heart and mediastinum are normal in size and contour. The lungs are grossly clear. There is no evidence of large pleural effusion. Visualized bones are normal for the patient's age. There is no radiographic evidence of free air beneath the diaphragm IMPRESSION: No radiographic evidence of acute cardiopulmonary disease.
== END 2018-05-17 17:23 | disposition home or self-care (01) ==
LOC: UCEAST 16:15
DX: J45.909 Unspecified asthma, uncomplicated (principal); Z88.7 Allergy status to serum and vaccine; Z88.8 Allergy status to other drugs, medicaments and biological substances; Z83.6 Family history of other diseases of the respiratory system
CPT/HCPCS: 71046; 99212; G0463

== ENCOUNTER 2019-08-18 19:02 | Emergency (ER) | payer BC ==
--- NOTE | 2019-08-18 20:33 | ED ---
HPI Cardiac - HPI Summary HPI Summary: Patient is a 49 y/o F w/ Hx of COPD and asthma who presents to [facility] with complaints of SOB. Patient had been evaluated by Dr. Veloz today, 08/18/19 and was sent to ED for further testing after having had an EKG done. Patient states that over the past few days, she has been SOB. She states that she has been unusually fatigued this past weekend as well. Today, 08/18/19, she states that she was driving to work and had SOB worsen at around 1315/1330, stating that it felt like her breathing was "cut off". Patient states that her COPD exacerbation is typically produced by environmental factors such as smoke but states that she did not encounter any today. She also notes some chest discomfort with breathing which she describes as a "burning" sensation. Patient has been taking ipratropium bromide using her home nebulizer. Patient reports some cough and decreased appetite but denies fever. On triage, pain is rated 2/ 10, nothing is noted to aggravate/alleviate Sx. Home medications and allergies are reviewed. In room, vitals, pulse 74, o2 98 on RA, BP 115/83. - History of Current Complaint Chief Complaint: EDChestPainROMI Stated Complaint: HERE FOR ADDITIONAL TESTING PER PT Time Seen by Provider: 08/18/19 20:22 Hx Obtained From: Patient Hx Last Menstrual Period: 09/03/17 Onset/Duration: Started Days Ago, Still Present, Worse Since Timing: Constant, Lasting Days Current Severity: Mild Pain Intensity: 2 Pain Scale Used: 0-10 Numeric Character: Burning Aggravating Factor(s): Nothing Alleviating Factor(s): Nothing Associated Signs and Symptoms: Positive: Chest Pain, Shortness of Breath, Cough , Other: - positive - decreased appetite, fatigue. Negative: Fever - Allergy/Home Medications Allergies/Adverse Reactions: Allergies Allergy/AdvReac Type Severity Reaction Status Date / Time Influenza Virus Vaccines Allergy Headache Verified 08/18/19 19:07 trimethobenzamide Allergy Vomiting Verified 08/18/19 19:07 [From [facility]] PMH/Surg Hx/FS Hx/Imm Hx Endocrine/Hematology History: Denies: Hx Anticoagulant Therapy, Hx Diabetes Cardiovascular History: Denies: Hx Hypertension, Hx Pacemaker/ICD Respiratory History: Reports: Hx Asthma Sensory History: Denies: Hx Hearing Aid Psychiatric History: Denies: Hx Panic Disorder - Cancer History Hx Chemotherapy: No Hx Radiation Therapy: No - Surgical History Surgery Procedure, Year, and Place: c section Infectious Disease History: No Infectious Disease History: Denies: Traveled Outside the [place] in Last 30 Days - Family History Known Family History: Positive: Respiratory Disease - Social History Alcohol Use: None Substance Use Type: Reports: None Hx Tobacco Use: Yes - quit year ago Smoking Status (MU): Never Smoked Tobacco Review of Systems Positive: Fatigue. Negative: Fever Positive: Chest Pain Positive: Shortness Of Breath, Cough Gastrointestinal: Other - positive - decreased appetite All Other Systems Reviewed And Are Negative: Yes Physical Exam - Summary Physical Exam Summary: Appearance: Well-appearing, Well-nourished, lying in bed comfortably Skin: Warm, dry, no obvious rash Eyes: sclera anicteric, no conjunctival pallor ENT: mucous membranes moist, pharynx appears normal Neck: Supple, nontender Respiratory: Clear to auscultation, no signs of respiratory distress Cardiovascular: Normal S1, S2. No murmurs. Normal distal pulses in tibial and radial bilaterally. Abdomen: Soft, nontender, normal active bowel sounds present Musculoskeletal: Normal, Strength/ROM Intact Neurological: A&Ox3, awake and alert, mentation is normal, speech is fluent and appropriate Psychiatric: affect is normal, does not appear anxious or depressed Triage Information Reviewed: Yes Vital Signs On Initial Exam: Initial Vitals Temp Pulse Resp BP Pulse Ox 97.4 F 74 16 171/97 98 08/18/19 19:05 08/18/19 19:05 08/18/19 19:05 08/18/19 19:05 08/18/19 19:05 Vital Signs Reviewed: Yes Procedures - Sedation Patient Received Moderate/Deep Sedation with Procedure: No Diagnostics - Vital Signs Vital Signs Temp Pulse Resp BP Pulse Ox 08/18/19 19:05 97.4 F 74 16 171/97 98 - Laboratory Result Diagrams: 08/18/19 20:43 08/18/19 20:43 Lab Statement: Any lab studies that have been ordered have been reviewed, and results considered in the medical decision making process. - Radiology CXR Radiology Interpretation Completed By: ED Physician Summary of Radiographic Findings: No acute process, pending official report. - EKG 1912 Summary of EKG Findings: EKG NSR at 72 BPM, P waves, QRS complex, and T waves are within normal limits, T waves and intervals are normal, no ischemic changes , no STEMI. This is a normal EKG. This EKG was reviewed and interpreted by Dr. Allen. Re-Evaluation - Re-Evaluation First Eval Re-Evaluation Time: 21:37 Comment: Results of workup were discussed, patient was prescribed prednisone and zithromax. She was discharged to home. Disposition - Course Course Of Treatment: Patient is a 49 y/o F w/ Hx of COPD and asthma who presents to [facility] with complaints of SOB. Patient had been evaluated by Dr. Veloz today, 08/18/19 and was sent to ED for further testing after having had an EKG done. Patient states that over the past few days, she has been SOB. She states that she has been unusually fatigued this past weekend as well. Today, , she states that she was driving to work and had SOB worsen at around 1315 /1330, stating that it felt like her breathing was "cut off". Patient states that her COPD exacerbation is typically produced by environmental factors such as smoke but states that she did not encounter any today. She also notes some chest discomfort with breathing which she describes as a "burning" sensation. Patient has been taking ipratropium bromide using her home nebulizer. Patient reports some cough and decreased appetite but denies fever. CXR showed no acute process. EKG showed NSR at 72 BPM, P waves, QRS complex, and T waves are within normal limits, T waves and intervals are normal, no ischemic changes. This is a normal EKG. Bloodwork was within normal limits with exception of creatinine 1.03 , BUN/creatinine ratio 23.3. Patient was given Zithromax 500 mg PO and prednisone 40 mg PO in ED. She was discharged with a prescription for both of these medications. - Diagnoses Provider Diagnoses: COPD exacerbation Discharge ED - Sign-Out/Discharge Documenting (check all that apply): Patient Departure - discharge - Discharge Plan Condition: Stable Disposition: HOME Prescriptions: Azithromycin TAB* [Zithromax TAB (Z-DALE) 250 mg #6 tabs] 2 tab PO .TODAY, THEN 1 DAILY #1 dale predniSONE TAB* [Deltasone 20 MG TAB*] 40 mg PO DAILY 5 Days #10 tab Patient Education Materials: COPD (Chronic Obstructive Pulmonary Disease) (ED) Referrals: Peyman Veloz MD [Primary Care Provider] - If Needed - Billing Disposition and Condition Condition: STABLE Disposition: Home - Attestation Statements Document Initiated by Melissa: Yes Documenting Scribe: JOSE DÍAZ Provider For Whom Melissa is Documenting (Include Credential): MAYELIN ALLEN MD Scribtobias Attestation: JOSE Gorman, scribed for MAYELIN ALLEN MD on 08/19/19 at 0555. Scribe Documentation Reviewed: Yes Provider Attestation: The documentation as recorded by the JOSE joe accurately reflects the service I personally performed and the decisions made by me, MAYELIN ALLEN MD Status of Scribe Document: Viewed
[2019-08-18 21:00] LABS: ABS Basophils 0.1 10^3/ul (0-0.2); ABS Eosinophils 0.1 10^3/ul (0-0.6); ABS Monocytes 0.5 10^3/ul (0-0.8); ABS Neutrophils 3.5 10^3/ul (1.5-7.7); Eosinophil % 1.7 %; Hematocrit 40 % (35-47); Hemoglobin 13.5 g/dL (12.0-16.0); Lymphocyte % 41.4 %; Mean Corpuscular HGB Conc 34 g/dL (31-36); Mean Corpuscular Hemoglobin 31 pg (27-31); Mean Corpuscular Volume 91 fL (80-97); Mean Platelet Volume 7.8 fL (7.4-10.4); Nucleated Red Blood Cells % 0.1; Platelet Count 220 10^3/uL (150-450); Red Blood Count 4.38 10^6 /uL (3.70-4.87); Red Cell Distribution Width 13 % (10-15); White Blood Count 7.2 10^3/uL (3.5-10.8)
[2019-08-18 21:19] LABS: Albumin 4.2 g/dL (3.2-5.2); Albumin/Globulin Ratio 1.8 (1-3); BUN/Creatinine Ratio 23.3 (8-20); Calcium 9.3 mg/dL (8.6-10.3); EGFR African American 68.4 (>60); EGFR Non-African American 56.5 (>60); Globulin 2.4 g/dL (2-4); Total Bilirubin 0.3 mg/dL (0.2-1.0); Total Protein 6.6 g/dL (6.4-8.9)
--- OUTSIDE RECORDS SUMMARY | 2019-08-18 21:42 | XMS REPORT | Continuity of Care Document ---
:1970 External Reference #:[id number] Author Name Shania Fallon Care Team Providers Name Role Phone Peyman Veloz MD - Family Care Team Information Field Staff [phone] Medicine Problems Active Problems Provider Date Radiculopathy, cervical region Dirk Hernandez MD Onset: 06/23/2019 Disorder of shoulder Dirk Hernandez MD Onset: 06/23/2019 Glenoid labrum tear Dirk Hernandez MD Onset: 06/23/2019 Endocarditis, valve unspecified Satish Suarez M.D., [facility], [facility] Onset: Palpitations Satish Suarez M.D., [facility] Onset: 02/05/2018 Dyspnea Satish Suarez M.D., [facility] Onset: 02/05/2018 Social History Type Date Description Comments Sex Unknown ETOH Use Denies alcohol use Tobacco Use Start: Unknown End: Patient is a former Quit 1995 Unknown smoker Recreational Drug Use Denies Drug Use Smoking Status Reviewed: 06/23/19 Patient is a former Quit 1996 smoker Exercise Type/Frequency Exercises regularly swims 3-4 times per week and walks Allergies, Adverse Reactions, Alerts Active Allergies Reaction Severity Comments Date Flu Virus Vaccine 02/05/2018 Tigan increased vomiting 02/05/2018 Trees 02/05/2018 Weeds 02/05/2018 Medications Active Medications SIG Qnty Indications Ordering Provider Date Sublingal Immuno as directed by Satish Suarez, 06/08/2019 Ermelinda elliott M.D., [facility], [facility] Ipratropium [place] Unknown 0.06% Solution Spiriva Handihaler Peyman Veloz, 18mcg Capsules Amoxicillin Santiago Ramirez, 500mg MD Tablets Advil as needed Unknown 200mg Tablets Turmeric Curcumin take one Unknown Complex/Black Pepper capsule/tablet Extract daily by mouth 500-3mg Capsules Ipratropium [place] 1 vial in nebulizer Unknown every 4-6 hours as 0.02% Solution needed Melatonin prn Unknown 1mg Capsules Vitamin E-200 1 by mouth 3-4 x a Unknown 200Unit week Capsules Vitamin B12 1 by mouth 3-4 x Unknown 100mcg week Tablets Tonic Syrup daily Unknown Vitamin K 1 by mouth daily Unknown 100mcg Iron 1 capsule by mouth Unknown Capsule daily Magnesium 4 tabs by mouth Unknown 100mg Tablets every day Glucosamine 1-2 by mouth daily Unknown Chondroitin as needed Capsules Vitamin D-3 1 by mouth 3 x a Unknown 1000Unit week Capsules Fish Oil 1 by mouth three Unknown 1000mg times daily Capsules Vitamin C 1 by mouth every Unknown 1000mg day Tablets Multi Vitamin 1 by mouth every Unknown Capsules day Ventolin HFA 2 puffs by mouth Unknown four times a day as 108(90Base) mcg/Act needed Aerosol Breo Ellipta 1 puff inhaled Unknown daily 100-25mcg/Inh Aerosol Spiriva Handihaler 1 unit inhalation Unknown daily 18mcg Capsules Omeprazole 1 by mouth every Unknown 20mg day Capsules DR Young Description No Information Available Vital Signs Date Vital Result Comment 06/23/2019 1:22pm Height 68 inches 5'8" Weight 246.00 lb Heart Rate 78 /min BP Systolic 132 mmHg BP Diastolic 80 mmHg Body Temperature 98.0 F Pain Level 9 BMI (Body Mass Index) 37.4 kg/m2 06/08/2019 11:17am Height 68 inches 5'8" Weight 246.00 lb no shoes Heart Rate 71 /min BP Systolic Sitting 120 mmHg lue reg cuff BP Diastolic Sitting 72 mmHg lue reg cuff BP Systolic Standing 122 mmHg lue reg cuff BP Diastolic Standing 72 mmHg lue reg cuff Respiratory Rate 16 /min BMI (Body Mass Index) 37.4 kg/m2 Ejection Fraction 55-60% echo. 06/06/19 Results Description No Information Available Procedures Date Code Description Status 06/08/2019 55196 EKG Tracing & Interpretation Completed 06/06/2019 49241 ECHO Transthoracic, Real-Time 2D With Doppler And Color Completed Flow 06/06/2019 02089 ECHO Transthoracic, Real-Time 2D With Doppler And Color Completed Flow Medical Devices Description No Information Available Encounters Type Date Location Provider Dx Diagnosis Office Visit 06/23/2019 [facility] Dirk Hernandez MD S43.432A Superior glenoid 1:00p at [place] labrum lesion of left shoulder, init encntr M75.42 Impingement syndrome of left shoulder M54.12 Radiculopathy, cervical region Office Visit 06/08/2019 11:00a [facility] Satish Ledesma I38 Endocarditis, valve Of Chante Suarez M.D., unspecified FACC, [facility]ASAL Assessments Date Code Description Provider 06/23/2019 S43.432A Superior glenoid labrum lesion of Dirk Hernandez MD left shoulder, initial encounter 06/23/2019 M75.42 Impingement syndrome of left Dirk Hernandez MD shoulder 06/23/2019 M54.12 Radiculopathy, cervical region Dirk Hernandez MD 06/08/2019 I38 Endocarditis, valve unspecified Satish Suarez M.D., FACC, [facility] 06/06/2019 I38 Endocarditis, valve unspecified Satish Suarez M.D., FACC, [facility] 06/06/2019 I38 Endocarditis, valve unspecified Traveling ECHO 1 Plan of Treatment 06/23/2019 - LONNIE Bennett43.432A Superior glenoid labrum lesion of left shoulder, initial encounterFollow up:Follow up: as [id number] Impingement syndrome of left [id number] Radiculopathy, cervical region Functional Status Description No Information Available Mental Status Description No Information Available Referrals Refer to Reason for Referral Status Appt Date Aramis Zacarias MD possible thoracic outlet syndrome Sent [address] [place] [address] [phone]
--- OUTSIDE RECORDS SUMMARY | 2019-08-18 21:42 | XMS REPORT | Continuity of Care Document ---
:1970 External Reference #:[id number] Author Name Dirk Hernandez MD (transmitted by agent of provider Neetu Cho) Address [address] [place] [address] Care Team Providers Name Role Phone Peyman Veloz MD - Family Care Team Information Trimmer [employer] [phone] Medicine Problems Active Problems Provider Date Radiculopathy, cervical region Dirk Hernandez MD Onset: 06/23/2019 Disorder of shoulder Dirk Hernandez MD Onset: 06/23/2019 Glenoid labrum tear Dirk Hernandez MD Onset: 06/23/2019 Endocarditis, valve unspecified Satish Suarez M.D., [facility], [facility] Onset: Palpitations Satish Suarez M.D., [facility], [facility] Onset: 02/05/2018 Dyspnea Satish Suarez M.D., [facility], [facility] Onset: 02/05/2018 Social History Type Date Description [...] by Satish Suarez, 06/08/2019 Ermelinda elliott M.D., [facility], [facility] Ipratropium [place] Unknown 0.06% Solution Spiriva Handihaler Peyman Veloz, 18mcg Capsules Amoxicillin Santiago Ramirez, 500mg MD Tablets Advil as needed Unknown 200mg Tablets Turmeric Curcumin take one Unknown Complex/Black Pepper capsule/tablet Extract daily by mouth 500-3mg Capsules Ipratropium [place] 1 vial in nebulizer Unknown every 4-6 [...] mouth every Unknown 20mg day Capsules DR Alegrias Description No Information Available Vital Signs Date [...] Available Procedures Date Code Description Status 06/08/2019 75872 EKG Tracing & Interpretation Completed 06/06/2019 37875 ECHO Transthoracic, Real-Time 2D With Doppler And Color Completed Flow 06/06/2019 36270 ECHO Transthoracic, Real-Time 2D With Doppler And Color Completed Flow Medical Devices Description No Information Available Encounters Type Date Location Provider Dx Diagnosis Office Visit 06/08/2019 [facility] Satish Suarez, I38 Endocarditis, valve 11:00a Of Chante Phillips, [facility], [facility] unspecified Assessments Date Code Description Provider 06/23/2019 S43.432A Superior glenoid labrum lesion of Dirk Hernandez MD left shoulder, initial encounter 06/23/2019 M75.42 Impingement syndrome of left Dirk Hernandez MD shoulder 06/23/2019 M54.12 Radiculopathy, cervical region Dirk Hernandez MD 06/08/2019 I38 Endocarditis, valve unspecified Satish Suarez M.D., [facility], [facility] 06/06/2019 I38 Endocarditis, valve unspecified Satish Suarez M.D., [facility], [facility] 06/06/2019 I38 Endocarditis, valve unspecified Traveling ECHO 1 Plan of Treatment 06/23/2019 - LONNIE Bennett43.432A Superior glenoid labrum lesion of left shoulder, initial encounterFollow up:Follow up: as [id number] Impingement syndrome of left [id number] Radiculopathy, cervical region Functional Status Description No Information Available Mental Status Description No Information Available Referrals Description No Information Available
[2019-08-18] MEDS ORDERED: predniSONE TAB* 20 MG PO ONE (22:07)
[2019-08-18] MEDS ORDERED: Azithromycin TAB* 250 MG PO ONE (22:07)
[2019-08-18 22:21] VITALS: BP 122/92
== END 2019-08-18 22:19 | disposition home or self-care (01) ==
LOC: ED 19:02
DX: J44.1 Chronic obstructive pulmonary disease with (acute) exacerbation (principal); Z87.891 Personal history of nicotine dependence; Z88.7 Allergy status to serum and vaccine; Z88.8 Allergy status to other drugs, medicaments and biological substances
CPT/HCPCS: 36415; 71046; 80053; 84484; 85025; 93005; 99284; A9270-GY; J7512